=== PATIENT | female | born 1965 | race Caucasian/White ===

== ENCOUNTER 2023-11-12 14:20 | Emergency (ER) | payer OTHER ==
[~2023-11-12] VITALS: Ht 157.5 cm; Wt 58.1 kg
[2023-11-12 14:20] VITALS: BP_SYST 177; PULSE 72; RESP 18; TEMP 98.2; O2SAT 98
[~2023-11-12 14:20] MED LIST: SYNTHROID PO
[2023-11-12 17:41] VITALS: BP_SYST 173; PULSE 72; RESP 20; TEMP 97.1; O2SAT 97
== END 2023-11-12 17:42 | disposition home or self-care (01) ==
LOC: SED 14:20
DX: S09.90XA Unspecified injury of head, initial encounter (principal); M54.2 Cervicalgia; Z79.899 Other long term (current) drug therapy; W01.0XXA Fall on same level from slipping, tripping and stumbling without subsequent striking against object, initial encounter; Y93.89 Activity, other specified; Y92.89 Other specified places as the place of occurrence of the external cause; Y99.8 Other external cause status
CPT/HCPCS: 70450-TC; 72125-TC; 76376; 99284